=== PATIENT | female | born 2000 | race African-American/Black ===

== ENCOUNTER 2022-01-24 07:01 | Emergency (ER) | payer OTHER ==
[2022-01-24 08:15] LABS: Bilirubin Neg (Negative); Blood, Urine 150 (Negative); Clarity Clear (Clear); Glucose, Urine (Dipstick) Normal (Negative); Ketone, Urine Negative (Negative); Leukocyte Negative (Negative); Nitrite Negative (Negative); Protein, Urine (Dipstick) Negative (Neg-Trace); Urobilinogen Normal mg/dL (Less than 2)
[2022-01-24 08:17] LABS: #Eosinphils 0.1 10x3/uL (0.0-0.5); #Monocytes 0.5 10x3/uL (0.0-1.1); #Neutrophils 4.1 10x3/uL (1.5-8.4); %Basophils 0.3 % (0.0-2.0); %Eosinophils 1.6 % (0.0-6.0); %Lymphocytes 30.4 % (18.0-47.0); %Monocytes 7.7 % (0.0-10.0); %Neutrophils 59.9 % (40.0-75.0); Hemoglobin 10.7 g/dL (12.0-15.5); Mean Corpuscular HGB CONC 32.9 g/dL (32.0-36.0); Mean Corpuscular Hemoglobin 22.6 pg (27.0-33.0); Mean Corpuscular Volume 68.7 fl (81.6-98.3); Platelet Count 239 10x3/uL (150-450); RBC Distribution Width 15.6 % (11.5-14.5); Red Blood Cell (RBC) Count 4.73 10x6/uL (3.90-5.03); White Blood Cell (WBC) Count 6.9 10x3/uL (3.5-10.5)
[2022-01-24 08:28] LABS: Bacteria/HPF 2+ HPF (None Seen); RBC/HPF 0-3 HPF (0-3); Transitional Epithelial 0-3 HPF (None Seen); WBC/HPF 0-3 HPF (0-3)
[2022-01-24 08:29] LABS: Mucous/LPF 1+ LPF (<2+)
[2022-01-24 08:48] LABS: Hypochromia SLIGHT = 6-15 cells (100X) (0-5/hpf); Microcytosis SLIGHT = 6-15 cells (100X) (0-5/hpf); Ovalocytes SLIGHT = 2-5 cells (100X) (0-1/hpf)
[2022-01-24 08:49] LABS: Platelet Morphology Comment Appears Adequate
== END 2022-01-24 09:26 | disposition home or self-care (01) ==
LOC: CSHERS 07:01
DX: O20.0 Threatened abortion (principal); Z3A.01 Less than 8 weeks gestation of pregnancy
CPT/HCPCS: 36415; 81003; 81015; 84702; 85025; 86900; 86901

== ENCOUNTER 2024-03-07 22:37 | Emergency (ER) | payer BC | END 2024-03-08 00:22 | disposition home or self-care (01) | LOC: CSHERS 22:37 → EEVIPCON 22:37 → CSHERS 03-08 00:22 | DX: K08.89 Other specified disorders of teeth and supporting structures (principal); Z55.6 Problems related to health literacy | CPT/HCPCS: 99282 ==

== ENCOUNTER 2024-12-22 01:30 | Emergency (ER) | payer BC ==
[2024-12-22] MEDS ORDERED: Ondansetron PF 4 MG/2 ML Vial ONE (01:59)
[2024-12-22 02:21] LABS: Hematocrit 32.3 % (34.9-44.5); Hemoglobin 10.2 g/dL (12.0-15.5); Mean Corpuscular Hemoglobin 21.6 pg (27.0-33.0); Mean Corpuscular Volume 68.4 fL (81.6-98.3); Platelet Count 281 10x3/uL (150-450); Red Blood Cell (RBC) Count 4.72 10x6/uL (3.90-5.03); White Blood Cell (WBC) Count 5.24 10x3/uL (3.5-10.5)
[2024-12-22 02:22] LABS: #Basophils 0.03 10x3/uL (0.0-0.2); #Eosinophils 0.14 10x3/uL (0.0-0.5); #Monocytes 0.27 10x3/uL (0.0-1.1); #Neutrophils 2.81 10x3/uL (1.5-8.4); %Basophils 0.6 % (0.0-2.0); %Eosinophils 2.7 % (0.0-6.0); %Lymphocytes 37.8 % (18.0-47.0); %Monocytes 5.2 % (0.0-10.0); %Neutrophils 53.5 % (40.0-75.0)
[2024-12-22 02:27] LABS: BHCG - Serum Negative (NEGATIVE); Pregs Control Background? CLEAR/WHITE (CLR/WHITE); Pregs Control Bar Appear? YES (CONTROL BAR)
[2024-12-22 02:36] LABS: ALT (SGPT) 10 U/L (Less than 34); AST (SGOT) 26 U/L (11-34); Albumin 4.1 g/dL (3.1-4.5); Alkaline Phosphatase 55 U/L (40-110); Anion Gap 14 mmol/L (10-20); BUN (Urea Nitrogen) 9 mg/dL (7.0-18.7); Bilirubin, Total 0.2 mg/dL (0.3-1.2); Calc. Creatinine Clearance 0 mL/min (70-130); Calcium 8.4 mg/dL (7.8-10.44); Carbon Dioxide 21 mmol/L (22-29); Chloride 110 mmol/L (98-107); Globulin 3.5 g/dL (2.4-3.5); Glucose 131 mg/dL (70-105); Lipase 108 U/L (8-78); Magnesium 1.8 mg/dL (1.6-2.6); Potassium 3.6 mmol/L (3.5-5.1); Sodium 141 mmol/L (136-145)
[2024-12-22] MEDS ORDERED: Ketorolac Tromethamine 30 MG (1 mL) VIAL ONE (02:39)
[2024-12-22] MEDS ORDERED: Metoclopramide HCl 10 MG (2 mL) VIAL ONE (03:29)
== END 2024-12-22 04:06 | disposition home or self-care (01) ==
LOC: CSHERS 01:30
DX: R11.2 Nausea with vomiting, unspecified (principal); R74.8 Abnormal levels of other serum enzymes; F17.290 Nicotine dependence, other tobacco product, uncomplicated
CPT/HCPCS: 80053; 83605; 83690; 83735; 84703; 85025; 96374; 96375; J1885; J2405; J2765

== ENCOUNTER 2025-04-04 15:19 | Emergency (ER) | payer BC ==
[2025-04-04] MEDS ORDERED: Acetaminophen 500 MG TAB ONE (16:37)
== END 2025-04-04 17:29 | disposition home or self-care (01) ==
LOC: CSHERS 15:19
DX: B34.9 Viral infection, unspecified (principal); F17.290 Nicotine dependence, other tobacco product, uncomplicated
CPT/HCPCS: 87081; 87428; 87430; 99283